=== PATIENT | female | born 1950 | race Caucasian/White ===

== ENCOUNTER 2016-12-14 09:56 | Outpatient (CLI) | payer MEDICARE, OTHER | END 2016-12-14 09:57 | disposition home or self-care (01) | DX: K21.9 Gastro-esophageal reflux disease without esophagitis (principal); E78.5 Hyperlipidemia, unspecified; R01.1 Cardiac murmur, unspecified; E66.9 Obesity, unspecified; Z82.49 Family history of ischemic heart disease and other diseases of the circulatory system ==

== ENCOUNTER 2019-01-09 14:42 | Outpatient (CLI) | payer MEDICARE, OTHER ==
--- NOTE | 2019-01-17 09:02 | Mammography Report ---
Reason: ENCOUNTER FOR SCREENING MAMMOGRAM FOR MALIGNANT NE Procedure Date: 01/09/2019 Accession Number: [id number] / [id number] Procedure: QUE - Screening Mammo w/Jey CPT Code: FULL RESULT: EXAM: Screening Mammo w/Jey DATE: 01/09/2019 3:37 PM CLINICAL HISTORY: Screening exam. Family history of breast cancer in the sister at age 71. TECHNIQUE: Bilateral CC and MLO views were obtained. COMPARISON: 07/03/2017. FINDINGS: The breasts demonstrate heterogeneously dense fibroglandular parenchyma bilaterally. There are coarse typically benign calcifications. Bilateral circumscribed masses appear similar to 2017 and per the 2017 report are unchanged from previous studies dating back to 2014, typically benign. This pattern remains nonspecific and most often associated with benign fibrocystic changes. No suspicious masses, clustered microcalcifications, or regions of architectural distortion are identified. IMPRESSION: Benign findings RECOMMENDATION: Routine annual screening unless otherwise clinically indicated. BIRADS CATEGORY 2: Benign findings STANDARD QUALIFYING STATEMENTS: 1. This examination was not reviewed with the aid of Computer-Aided Detection (CAD). 2. A negative or benign imaging report should not delay biopsy if clinically suspicious findings are present. Consider surgical consultation if warrented. More than 5% of cancers are not identified by imaging. 3. Dense breasts may obscure an underlying neoplasm. 4. This examination was reviewed with the aid of 3D breast imaging (tomosynthesis).
== END 2019-01-09 14:43 | disposition home or self-care (01) ==
LOC: DI 14:42
PROVIDERS: ATTEND Nurse Practitioner Family
DX: Z12.31 Encounter for screening mammogram for malignant neoplasm of breast (principal); Z80.3 Family history of malignant neoplasm of breast
CPT/HCPCS: 77063; 77067

== ENCOUNTER 2023-11-03 08:00 | Outpatient (CLI) | payer MEDICARE, OTHER | END 2023-11-03 08:01 | disposition home or self-care (01) | LOC: LAB.WCP 08:00 → LAB.S 08:01 | PROVIDERS: ATTEND Physician Assistant | DX: U07.1 COVID-19 (principal) ==